=== PATIENT | male | born 1985 | race Two or more races ===

== ENCOUNTER 2022-02-15 21:42 | Emergency (ER) | payer SELFPAY ==
[~2022-02-15] VITALS: Ht 185.4 cm; Wt 85.9 kg
[2022-02-15 21:42] VITALS: BP 132/62
== END 2022-02-15 23:35 | disposition left against medical advice (07) ==
LOC: M ED 21:42
DX: Z53.29 Procedure and treatment not carried out because of patient's decision for other reasons (principal)